=== PATIENT | male | born 1985 | race Caucasian/White ===

== ENCOUNTER 2021-07-24 07:50 | Emergency (ER) | payer OTHER ==
[2021-07-24] MEDS ORDERED: Magnesium 2 GM/50 ML BAG (IN WATER) ONE (08:52)
[2021-07-24] MEDS ORDERED: Lorazepam 2 MG/ML VIAL ONE ×2 (08:52→10:31)
[2021-07-24 09:07] LABS: ALT (SGPT) 35 U/L (8-55); AST (SGOT) 60 U/L (5-34); Albumin 3.6 g/dL (3.5-5.0); Alkaline Phosphatase 51 U/L (40-110); Anion Gap 11 mmol/L (10-20); BUN (Urea Nitrogen) 14 mg/dL (8.9-20.6); Calc. Creatinine Clearance 0 mL/min (70-130); Calcium 9.2 mg/dL (7.8-10.44); Carbon Dioxide 25 mmol/L (22-29); Chloride 102 mmol/L (98-107); Globulin 4.4 g/dL (2.4-3.5); Glucose 128 mg/dL (70-105); Magnesium 1.9 mg/dL (1.6-2.6); Potassium 3.8 mmol/L (3.5-5.1); Sodium 134 mmol/L (136-145)
[2021-07-24] MEDS ORDERED: Thiamine 100 MG TAB ONE (09:08)
[2021-07-24 09:17] LABS: #Basophils 0.1 10x3/uL (0.0-0.2); #Eosinphils 0.2 10x3/uL (0.0-0.5); #Monocytes 0.9 10x3/uL (0.0-1.1); #Neutrophils 5.2 10x3/uL (1.5-8.4); %Basophils 1.3 % (0.0-2.0); %Eosinophils 2.9 % (0.0-6.0); %Monocytes 11.6 % (0.0-10.0); %Neutrophils 66.8 % (40.0-75.0); Hemoglobin 13.9 g/dL (13.5-17.5); Mean Corpuscular HGB CONC 35.4 g/dL (32.0-36.0); Mean Corpuscular Hemoglobin 34.5 pg (27.0-33.0); Mean Corpuscular Volume 97.5 fl (81.2-95.1); Platelet Count 101 10x3/uL (150-450); RBC Distribution Width 13.7 % (11.5-14.5); Red Blood Cell (RBC) Count 4.03 10x6/uL (4.32-5.72); White Blood Cell (WBC) Count 7.8 10x3/uL (3.5-10.5)
[2021-07-24] MEDS ORDERED: Folic Acid 1 MG, Multivitamins, Adult 10 ML in Dextrose 5 %-0.45 % NaCl 1,000 ML IV SCH (10:00)
== END 2021-07-24 14:55 ==
LOC: CSHERS 07:50
DX: F10.239 Alcohol dependence with withdrawal, unspecified (principal); I10 Essential (primary) hypertension
CPT/HCPCS: 80053; 82550; 83735; 85025; 93005; 96365; 96366; 96367; 96375; 96376; J2060; J3475; J7042

== ENCOUNTER 2021-07-26 10:21 | Inpatient (IN) | payer OTHER ==
[2021-07-26 11:26] LABS: Hemoglobin 13.5 g/dL (13.5-17.5); Mean Corpuscular Volume 97.2 fl (81.2-95.1); Platelet Count 104 10x3/uL (150-450); RBC Distribution Width 14.1 % (11.5-14.5); Red Blood Cell (RBC) Count 3.97 10x6/uL (4.32-5.72); White Blood Cell (WBC) Count 8.2 10x3/uL (3.5-10.5)
[2021-07-26 11:38] LABS: ALT (SGPT) 40 U/L (8-55); AST (SGOT) 62 U/L (5-34); Acetaminophen Less than 10.0 mcg/mL (10.0-30.0); Albumin 3.6 g/dL (3.5-5.0); Alcohol Less than 10 mg/dL (Less than 10); Alkaline Phosphatase 52 U/L (40-110); Anion Gap 12 mmol/L (10-20); BUN (Urea Nitrogen) 12 mg/dL (8.9-20.6); Bilirubin, Total 1.8 mg/dL (0.2-1.2); CK (CPK) 238 U/L (30-200); Calc. Creatinine Clearance 0 mL/min (70-130); Calcium 9.1 mg/dL (7.8-10.44); Carbon Dioxide 24 mmol/L (22-29); Chloride 103 mmol/L (98-107); Globulin 4.3 g/dL (2.4-3.5); Glucose 94 mg/dL (70-105); Potassium 4.4 mmol/L (3.5-5.1); Protein, Total 7.9 g/dL (6.0-8.3); Salicylate Less than 8.0 mg/dL (15.0-30.0); Sodium 135 mmol/L (136-145)
[2021-07-26 11:40] LABS: MDiff Complete? YES
[2021-07-26] MEDS ORDERED: Diazepam 5 MG TAB ONE (11:43)
[2021-07-26] MEDS ORDERED: Thiamine HCl 200 MG/2 ML VIAL ONE (11:43)
[2021-07-26] MEDS ORDERED: Magnesium 2 GM/50 ML BAG (IN WATER) ONE (11:44)
[2021-07-26] MEDS ORDERED: Folic Acid 1 MG TAB ONE (11:44)
[2021-07-26 11:45] LABS: Band 1 % (5-11); Eosinophils 4 % (0-10); Lymphocytes 18 % (21-51); Monocytes 14 % (0-10); Neutrophil 61 % (42-75)
[2021-07-26 11:47] LABS: Platelet Morphology Comment Appears Decreased; RBC Morphology Normal
[2021-07-26 11:49] LABS: Lipase 28 U/L (8-78); Magnesium 2.1 mg/dL (1.6-2.6)
[2021-07-26 11:49] LABS: Bilirubin Neg (Negative); Blood, Urine Negative (Negative); Clarity Clear (Clear); Glucose, Urine (Dipstick) Normal (Negative); Ketone, Urine Negative (Negative); Leukocyte Negative (Negative); Nitrite Negative (Negative); Protein, Urine (Dipstick) Negative (Neg-Trace)
[2021-07-26 11:56] LABS: Amphetamine Not Detected (NotDetected); Barbiturates Screen Not Detected (NotDetected); Benzodiazepine Screen Detected (NotDetected); Cocaine Metabolite Screen Not Detected (NotDetected); Methadone Not Detected (NotDetected); Methamphetamine Not Detected (NotDetected); Opiate Screen Not Detected (NotDetected); Oxycodone Screen Not Detected (NotDetected); Phencyclidine (PCP) Not Detected (NotDetected); THC/Cannabinoid Screen Not Detected (NotDetected); Tricyclic Screen Detected (NotDetected)
[2021-07-26] MEDS ORDERED: Lorazepam 2 MG/ML VIAL IM PRN (13:15)
[2021-07-26] MEDS ORDERED: Electrolyte Replacement Protocol 1 EACH FS SCH (13:15)
[2021-07-26] MEDS ORDERED: Lorazepam 1 MG TAB PO PRN (13:15)
[2021-07-26] MEDS ORDERED: Ondansetron ODT 4 MG TAB PO PRN (13:15)
[2021-07-26 14:04] LABS: Bilirubin, Direct 0.9 mg/dL (0.1-0.3); Magnesium 2.2 mg/dL (1.6-2.6); Phosphorus 3.7 mg/dL (2.3-4.7)
[2021-07-26 14:29] LABS: Syphilis Antibody Nonreactive (Nonreactive); Syphilis Antibody Index 0.19 S/CO (<1.00 Non-Reactive)
[2021-07-26 16:09] VITALS: BMI 29.8
[2021-07-26] MEDS: Dexmedetomidine In 0.9 % NaCl 100 ML IVPB SCH (16:55)
[2021-07-26] MEDS: Sodium Chloride 0.9% 1,000 ML IV SCH ×2 (16:55→20:17)
[2021-07-26] MEDS: Lorazepam 1 MG TAB PO SCH ×3 (17:13→20:17)
[2021-07-26 17:46] LABS: SARS-CoV-2 NAA Rapid Test Not Detected (NotDetected)
[2021-07-26] MEDS: Famotidine/PF 20 mg/2ml Vial SLOW IVP SCH (20:17)
[2021-07-27] MEDS: Lorazepam 1 MG TAB PO SCH ×5 (00:37→19:21)
[2021-07-27 03:20] LABS: Hemoglobin 14.3 g/dL (13.5-17.5); MDiff Complete? YES; Manual Diff?? YES; Mean Corpuscular HGB CONC 34.6 g/dL (32.0-36.0); Mean Corpuscular Hemoglobin 34.1 pg (27.0-33.0); Mean Corpuscular Volume 98.6 fl (81.2-95.1); Mean Platelet Volume 9.1 fl (7.4-10.4); Platelet Count 96 10x3/uL (150-450); RBC Distribution Width 13.7 % (11.5-14.5); Red Blood Cell (RBC) Count 4.19 10x6/uL (4.32-5.72); White Blood Cell (WBC) Count 6.2 10x3/uL (3.5-10.5)
[2021-07-27 03:29] LABS: ALT (SGPT) 41 U/L (8-55); AST (SGOT) 58 U/L (5-34); Albumin 3.5 g/dL (3.5-5.0); Alkaline Phosphatase 52 U/L (40-110); Anion Gap 13 mmol/L (10-20); BUN (Urea Nitrogen) 9 mg/dL (8.9-20.6); Bilirubin, Total 2.1 mg/dL (0.2-1.2); Calc. Creatinine Clearance 194 mL/min (70-130); Calcium 8.8 mg/dL (7.8-10.44); Carbon Dioxide 24 mmol/L (22-29); Chloride 104 mmol/L (98-107); Globulin 4.5 g/dL (2.4-3.5); Glucose 104 mg/dL (70-105); Sodium 137 mmol/L (136-145)
[2021-07-27 03:51] LABS: Band 1 % (5-11); Eosinophils 2 % (0-10); Lymphocytes 24 % (21-51); Monocytes 11 % (0-10); Neutrophil 58 % (42-75); Platelet Morphology Comment Appears Decreased; Reactive Lymphocytes 3 % (0-10)
[2021-07-27] MEDS: Dexmedetomidine In 0.9 % NaCl 100 ML IVPB SCH ×6 (05:03→23:56)
[2021-07-27] MEDS: Sodium Chloride 0.9% 1,000 ML IV SCH ×3 (06:14→20:40)
[2021-07-27] MEDS: Multivit, Therapeutic 1 TAB PO SCH (08:05)
[2021-07-27] MEDS: Famotidine/PF 20 mg/2ml Vial SLOW IVP SCH ×2 (08:05→20:10)
[2021-07-27] MEDS: Folic Acid 1 MG TAB PO SCH (08:05)
[2021-07-27] MEDS ORDERED: Metoprolol Tartrate 25 MG TAB PO SCH (09:00)
[2021-07-27] MEDS: Thiamine HCl 200 MG/2 ML VIAL SLOW IVP SCH (11:59)
[2021-07-27] MEDS ORDERED: Lorazepam 1 MG TAB PO PRN (13:15)
[2021-07-27] MEDS ORDERED: NIFEdipine XL 60 MG TAB PO SCH ×2 (14:00→21:00)
[2021-07-27] MEDS ORDERED: hydrALAZINE 20 MG/ML VIAL SLOW IVP PRN (17:09)
[2021-07-27] MEDS: Carvedilol 25 MG TAB PO SCH (20:11)
[2021-07-27] MEDS ORDERED: Lorazepam 2 MG/ML VIAL SLOW IVP SCH (23:30)
[2021-07-28] MEDS: Lorazepam 1 MG TAB PO SCH ×3 (00:58→12:30)
[2021-07-28 03:40] LABS: ALT (SGPT) 42 U/L (8-55); AST (SGOT) 55 U/L (5-34); Albumin 3.6 g/dL (3.5-5.0); Alkaline Phosphatase 57 U/L (40-110); Anion Gap 16 mmol/L (10-20); BUN (Urea Nitrogen) 11 mg/dL (8.9-20.6); Bilirubin, Total 2.8 mg/dL (0.2-1.2); Calc. Creatinine Clearance 190 mL/min (70-130); Calcium 9.1 mg/dL (7.8-10.44); Carbon Dioxide 20 mmol/L (22-29); Chloride 103 mmol/L (98-107); Globulin 4.7 g/dL (2.4-3.5); Glucose 102 mg/dL (70-105); Hemoglobin 15.9 g/dL (13.5-17.5); MDiff Complete? YES; Manual Diff?? YES; Mean Corpuscular HGB CONC 35.7 g/dL (32.0-36.0); Mean Corpuscular Hemoglobin 33.7 pg (27.0-33.0); Mean Corpuscular Volume 94.5 fl (81.2-95.1); Mean Platelet Volume 8.5 fl (7.4-10.4); Platelet Count 109 10x3/uL (150-450); Protein, Total 8.3 g/dL (6.0-8.3); RBC Distribution Width 13.3 % (11.5-14.5); Red Blood Cell (RBC) Count 4.72 10x6/uL (4.32-5.72); Sodium 135 mmol/L (136-145)
[2021-07-28 04:13] LABS: Band 2 % (5-11); Eosinophils 3 % (0-10); Lymphocytes 28 % (21-51); Monocytes 9 % (0-10); Neutrophil 47 % (42-75); Reactive Lymphocytes 8 % (0-10)
[2021-07-28 04:14] LABS: Large Platelets SLIGHT; Platelet Morphology Comment Appears Decreased
[2021-07-28] MEDS: Dexmedetomidine In 0.9 % NaCl 100 ML IVPB SCH ×5 (04:58→23:06)
[2021-07-28] MEDS: Sodium Chloride 0.9% 1,000 ML IV SCH ×3 (05:09→22:13)
[2021-07-28] MEDS ORDERED: DULoxetine 60 MG CAP PO SCH (09:00)
[2021-07-28] MEDS: Famotidine/PF 20 mg/2ml Vial SLOW IVP SCH ×2 (09:37→22:11)
[2021-07-28] MEDS: Amitriptyline HCl 25 MG TAB PO SCH (09:38)
[2021-07-28] MEDS: DULoxetine 30 MG CAP PO SCH (09:42)
[2021-07-28] MEDS: Multivit, Therapeutic 1 TAB PO SCH (09:43)
[2021-07-28] MEDS: Folic Acid 1 MG TAB PO SCH (09:43)
[2021-07-28] MEDS: Carvedilol 25 MG TAB PO SCH (10:49)
[2021-07-28] MEDS ORDERED: Multivitamins, Adult 10 ML, Folic Acid 1 MG, Thiamine HCl 100 MG in Dextrose 5 %-0.45 %... IV SCH (11:00)
[2021-07-28] MEDS ORDERED: Artificial Tear Sol 15 ML BOT EA EYE PRN (11:01)
[2021-07-28] MEDS ORDERED: Calcium Carbonate 500 MG ChewTAB PO PRN (11:01)
[2021-07-28] MEDS ORDERED: Loratadine 10 MG TAB PO PRN (11:01)
[2021-07-28] MEDS ORDERED: Cepastat Lozenges 1 LOZ PO PRN (11:01)
[2021-07-28] MEDS ORDERED: Moisturizing Cream (Eucerin) 113 GM JAR TOP PRN (11:01)
[2021-07-28] MEDS ORDERED: Loperamide HCl 2 MG CAP PO PRN (11:01)
[2021-07-28] MEDS ORDERED: Ondansetron PF 4 MG/2 ML Vial IVP PRN (11:01)
[2021-07-28] MEDS ORDERED: Senokot S 8.6-50 MG TAB PO PRN (11:01)
[2021-07-28] MEDS ORDERED: guaiFENesin 100 MG/5 ML UDCUP PO PRN (11:10)
[2021-07-28] MEDS ORDERED: Sodium Chloride 0.9% 1,000 ML IV SCH (11:30)
[2021-07-28] MEDS: Thiamine HCl 200 MG/2 ML VIAL SLOW IVP SCH (12:02)
[2021-07-28] MEDS ORDERED: GUAIFENESIN SF SOLN 200 MG/10 ML UDCUP PO PRN (14:06)
[2021-07-28] MEDS ORDERED: Sodium Chloride 0.9% 500 ML IV SCH ×2 (14:15→15:15)
[2021-07-28] MEDS: Lorazepam 0.5 MG TAB PO SCH ×2 (16:10→19:58)
[2021-07-28] MEDS: Lorazepam 1 MG TAB PO PRN (22:25)
[2021-07-29] MEDS: Lorazepam 0.5 MG TAB PO SCH ×3 (01:09→13:06)
[2021-07-29] MEDS: Dexmedetomidine In 0.9 % NaCl 100 ML IVPB SCH (01:56)
[2021-07-29 03:24] LABS: Hemoglobin 14.6 g/dL (13.5-17.5); Manual Diff?? YES; Mean Corpuscular HGB CONC 36.5 g/dL (32.0-36.0); Mean Corpuscular Hemoglobin 34.4 pg (27.0-33.0); Mean Corpuscular Volume 94.1 fl (81.2-95.1); Platelet Count 125 10x3/uL (150-450); RBC Distribution Width 12.9 % (11.5-14.5); Red Blood Cell (RBC) Count 4.25 10x6/uL (4.32-5.72); White Blood Cell (WBC) Count 8.6 10x3/uL (3.5-10.5)
[2021-07-29 03:25] LABS: MDiff Complete? YES; Mean Platelet Volume 8.9 fl (7.4-10.4)
[2021-07-29 03:47] LABS: ALT (SGPT) 32 U/L (8-55); AST (SGOT) 44 U/L (5-34); Albumin 3.3 g/dL (3.5-5.0); Alkaline Phosphatase 53 U/L (40-110); Anion Gap 16 mmol/L (10-20); BUN (Urea Nitrogen) 17 mg/dL (8.9-20.6); Bilirubin, Total 2.2 mg/dL (0.2-1.2); Calc. Creatinine Clearance 175 mL/min (70-130); Calcium 8.9 mg/dL (7.8-10.44); Carbon Dioxide 20 mmol/L (22-29); Chloride 103 mmol/L (98-107); Globulin 4.1 g/dL (2.4-3.5); Glucose 97 mg/dL (70-105); Magnesium 1.5 mg/dL (1.6-2.6); Phosphorus 4.3 mg/dL (2.3-4.7); Potassium 4.3 mmol/L (3.5-5.1); Protein, Total 7.4 g/dL (6.0-8.3); Sodium 135 mmol/L (136-145)
[2021-07-29 04:07] LABS: Band 4 % (5-11); Eosinophils 5 % (0-10); Lymphocytes 18 % (21-51); Monocytes 8 % (0-10); Neutrophil 56 % (42-75); Reactive Lymphocytes 5 % (0-10)
[2021-07-29 04:09] LABS: Platelet Morphology Comment Appears Decreased
[2021-07-29] MEDS ORDERED: Magnesium 2 GM/50 ML(in water) 2 GM in Premix Bag 1 BAG IVPB SCH (05:00)
[2021-07-29] MEDS: Sodium Chloride 0.9% 1,000 ML IV SCH ×3 (05:33→22:32)
[2021-07-29] MEDS: DULoxetine 30 MG CAP PO SCH (07:21)
[2021-07-29] MEDS: Amitriptyline HCl 25 MG TAB PO SCH (07:21)
[2021-07-29] MEDS: Famotidine/PF 20 mg/2ml Vial SLOW IVP SCH ×2 (08:00→21:49)
[2021-07-29] MEDS: Multivit, Therapeutic 1 TAB PO SCH (08:00)
[2021-07-29] MEDS: Folic Acid 1 MG TAB PO SCH (08:00)
[2021-07-29] MEDS: Thiamine HCl 200 MG/2 ML VIAL SLOW IVP SCH (11:19)
[2021-07-29] MEDS: Lorazepam 1 MG TAB PO PRN (11:20)
[2021-07-29] MEDS: Lorazepam 0.5 MG TAB PO PRN (16:50)
[2021-07-30] MEDS: Lorazepam 0.5 MG TAB PO PRN ×3 (00:45→15:22)
[2021-07-30 03:46] LABS: Hemoglobin 15.1 g/dL (13.5-17.5); Mean Corpuscular HGB CONC 35.5 g/dL (32.0-36.0); Mean Corpuscular Hemoglobin 34.1 pg (27.0-33.0); Mean Corpuscular Volume 95.9 fl (81.2-95.1); Mean Platelet Volume 8.8 fl (7.4-10.4); Platelet Count 129 10x3/uL (150-450); RBC Distribution Width 13.4 % (11.5-14.5); Red Blood Cell (RBC) Count 4.43 10x6/uL (4.32-5.72); White Blood Cell (WBC) Count 10.6 10x3/uL (3.5-10.5)
[2021-07-30 04:01] LABS: Manual Diff?? YES
[2021-07-30 04:02] LABS: MDiff Complete? YES
[2021-07-30 04:15] LABS: Band 2 % (5-11); Eosinophils 1 % (0-10); Lymphocytes 14 % (21-51); Monocytes 15 % (0-10); Neutrophil 62 % (42-75); Reactive Lymphocytes 4 % (0-10)
[2021-07-30 04:16] LABS: Platelet Morphology Comment Appears Adequate
[2021-07-30 04:24] LABS: Anion Gap 15 mmol/L (10-20); BUN (Urea Nitrogen) 12 mg/dL (8.9-20.6); Calc. Creatinine Clearance 183 mL/min (70-130); Calcium 9.1 mg/dL (7.8-10.44); Carbon Dioxide 23 mmol/L (22-29); Chloride 103 mmol/L (98-107); Glucose 89 mg/dL (70-105); Potassium 3.7 mmol/L (3.5-5.1); Sodium 137 mmol/L (136-145)
[2021-07-30] MEDS ORDERED: Magnesium 2 GM/50 ML(in water) 2 GM in Premix Bag 1 BAG IVPB SCH (05:00)
[2021-07-30] MEDS: Sodium Chloride 0.9% 1,000 ML IV SCH ×2 (07:40→21:45)
[2021-07-30] MEDS ORDERED: Magnesium 2 GM/50 ML BAG (IN WATER) ONE (07:47)
[2021-07-30] MEDS: DULoxetine 30 MG CAP PO SCH (09:06)
[2021-07-30] MEDS: Thiamine 100 MG TAB PO SCH (09:06)
[2021-07-30] MEDS: Multivit, Therapeutic 1 TAB PO SCH (09:06)
[2021-07-30] MEDS: Famotidine/PF 20 mg/2ml Vial SLOW IVP SCH ×2 (09:06→21:44)
[2021-07-30] MEDS: Folic Acid 1 MG TAB PO SCH (09:06)
[2021-07-30] MEDS: Amitriptyline HCl 25 MG TAB PO SCH (09:15)
[2021-07-30 23:16] VITALS: BP 125/83; TEMP 97.2
[2021-07-31 03:39] LABS: Magnesium 1.9 mg/dL (1.6-2.6)
[2021-07-31] MEDS ORDERED: Magnesium 2 GM/50 ML(in water) 2 GM in Premix Bag 1 BAG IVPB SCH (05:00)
[2021-07-31] MEDS: Sodium Chloride 0.9% 1,000 ML IV SCH ×2 (05:58→08:10)
[2021-07-31] MEDS: DULoxetine 30 MG CAP PO SCH (08:28)
[2021-07-31] MEDS: Amitriptyline HCl 25 MG TAB PO SCH (08:28)
[2021-07-31] MEDS: Multivit, Therapeutic 1 TAB PO SCH (08:29)
[2021-07-31] MEDS: Thiamine 100 MG TAB PO SCH (08:30)
[2021-07-31] MEDS: Folic Acid 1 MG TAB PO SCH (08:30)
[2021-07-31] MEDS: Famotidine/PF 20 mg/2ml Vial SLOW IVP SCH (08:30)
== END 2021-07-31 12:10 | DRG 896 ==
LOC: CSHERS 10:21 → CSHIMCU 15:25
PROVIDERS: ADMIT Student in an Organized Health Care Education/Training Program; ATTEND Internal Medicine
DX: F10.231 Alcohol dependence with withdrawal delirium (principal); G93.41 Metabolic encephalopathy; Z20.822 Contact with and (suspected) exposure to COVID-19; I10 Essential (primary) hypertension; D69.6 Thrombocytopenia, unspecified
CPT/HCPCS: 36415; 80048; 80053; 80306; 80307; 81003; 82248; 82550; 83690; 83735; 84100; 85025; 86780; 94760; 96365; 96366; 96372; J0360; J2060; J3411; J3475; J7030; J7050; S0028; U0002